=== PATIENT | male | born 1985 | race Hispanic/Latino ===

== ENCOUNTER 2023-01-18 21:33 | Emergency (ER) | payer SELFPAY ==
[2023-01-18 22:42] LABS: Absolute Lymphocytes (CBC) 2.6 K/uL (0.7-4.9); Hematocrit 18.3 % (39.6-49.0); Lymphocytes % 27.7 % (15.3-44.8); MCV 101.7 fL (80-100); MPV 7.8 fL (7.6-11.3)
[2023-01-18] MEDS ORDERED: CEFTRIAXONE 1000 MG/VIAL ONE (22:49)
[2023-01-18] MEDS ORDERED: ONDANSETRON 4 MG/2 ML VIAL ONE (22:49)
[2023-01-18] MEDS ORDERED: OCTREOTIDE ACETATE 100 MCG/ML ONE (22:49)
[2023-01-18] MEDS ORDERED: PANTOPRAZOLE 40 MG INJ ONE (22:49)
[2023-01-18] MEDS ORDERED: NA CHLORIDE 0.9% 500 ML ONE (22:50)
[2023-01-18] MEDS ORDERED: OCTREOTIDE ACETATE 500 MCG/ML ONE (22:50)
[2023-01-18] MEDS ORDERED: NA CHLORIDE 0.9% 250 ML ONE (22:50)
[2023-01-18] MEDS ORDERED: NA CHLORIDE 0.9% 50 ML ONE (22:51)
[2023-01-18 23:05] LABS: Albumin 2.7 g/dL (3.4-5.0); Bilirubin Total 0.5 mg/dL (0.2-1.0); Potassium 3.9 mEq/L (3.5-5.1); Protein, Total 6.6 g/dL (6.4-8.2)
[2023-01-18 23:19] LABS: Protime INR 1.35
--- NOTE | 2023-01-19 00:07 | EDPHYS ---
Physician Documentation [facility] Name: Virginie Cervantes Age: 37 yrs Sex: Male : 1985 Arrival Date: 01/18/2023 Time: 21:33 Bed 6 Private MD: ED Physician Dragan Santana HPI: 01/18 22:08 This 37 yrs old Male presents to ER via Wheelchair with complaints of rn Black/Tarry Stools, VOMITTING BLOOD, Weakness, Dizziness. 22:08 The patient presents to the emergency department vomiting blood. Onset: The rn symptoms/episode began/occurred 5 day(s) ago. Abdominal pain: none is appreciated. Modifying factors: The symptoms are alleviated by nothing, the symptoms are aggravated by nothing. Associated signs and symptoms: Pertinent positives: dizziness when standing, shortness of breath, Pertinent negatives: chest pain. Severity of symptoms: At their worst the symptoms were moderate in the emergency department the symptoms are unchanged. The patient has not experienced similar symptoms in the past. The patient has not recently seen a physician. Pt reports dark black stools for 5 days, started vomiting blood today, 2 episodes. No fever. + daily drinker for atleast 14 years. Last drink 1 week ago when started feeling bad. No abd pain. Does report abd swelling and leg swelling. No other medical problems per patient. . Historical: - Allergies: 21:57 No Known Allergies; ha1 - PMHx: 21:57 Hypertensive disorder; ha1 - PSHx: 21:57 None; ha1 - Immunization history:: Adult Immunizations not up to date. - Social history:: Smoking status: Patient reports the use of cigarette tobacco products, smokes one pack cigarettes per day. - Family history:: not pertinent. - Hospitalizations: : No recent hospitalization is reported. ROS: 22:08 Constitutional: Negative for fever, chills, and weight loss, Cardiovascular: Negative rn for chest pain, palpitations, and edema, Respiratory: + mild sob Abdomen/GI: + abd distension, + dark stool, + hematemesis MS/Extremity: Negative for injury and deformity, Skin: Negative for injury, rash, and discoloration, Neuro: Negative for headache, numbness, tingling, and seizure. Exam: 22:06 ECG was reviewed by the Attending Physician. rn 22:08 Constitutional: This is a well developed male in no acute distress. Head/Face: rn Normocephalic, atraumatic. Cardiovascular: Tachycardic, regular Respiratory: Mild tachypnea, no retractions, speaking full sentences. Abdomen/GI: + distended abd with fluid wave, no focal tenderness, no peritoneal signs. Skin: Ashen skin tone MS/ Extremity: Pulses equal, no cyanosis. 2+ edema bilateral lower ext Neuro: Awake and alert, GCS 15 Vital Signs: 21:48 BP 143 / 86; Pulse 109; Resp 18; Temp 99.1(O); Pulse Ox 100% on R/A; kd3 21:50 BP 134 / 80; Pulse 107; Resp 20; Pulse Ox 100% on R/A; Weight 79.83 kg; Height 5 ft. 7 ha1 in. ; 22:45 BP 119 / 78; Pulse 97; Resp 18; Pulse Ox 98% ; ha1 23:30 BP 118 / 73; Pulse 88; Resp 17 S; Pulse Ox 100% on R/A; ha1 05/ 00:18 BP 121 / 73; Pulse 89; Resp 20; Pulse Ox 100% on R/A; kd3 01:20 BP 127 / 72; Pulse 95; Resp 18 S; Temp 98.3(O); Pulse Ox 100% on R/A; ha1 01:25 BP 118 / 72; Pulse 91; Resp 18; Pulse Ox 100% on R/A; ha1 01:56 BP 118 / 69; Pulse 87; Resp 16; Pulse Ox 100% on R/A; kd3 02:20 BP 118 / 69; Pulse 83; Resp 19 S; Pulse Ox 100% on R/A; ha1 03:20 BP 108 / 72; Pulse 80; Resp 16 S; Temp 98.6(O); Pulse Ox 100% on R/A; ha1 04:05 BP 113 / 72; Pulse 80; Resp 16 S; Temp 98.1(O); Pulse Ox 100% on R/A; ha1 05:00 BP 117 / 68; Pulse 78; Resp 16 S; Pulse Ox 100% on R/A; ha1 06:00 BP 108 / 72; Pulse 77; Resp 18 S; Pulse Ox 100% on R/A; ha1 / 21:50 Body Mass Index 27.57 (79.83 kg, 170.18 cm) ha1 MDM: 01/18 21:38 Patient medically screened. rn 01/19 00:05 Differential diagnosis: gastritis, varices, UGIB, cirrhosis, ascites. Data reviewed: rn vital signs, nurses notes, lab test result(s), radiologic studies, CT scan, and as a result, I will admit patient. Consideration of Admission/Observation Patient was admitted/placed on observation. Escalation of care including admission/observation considered. Counseling: I had a detailed discussion with the patient and/or guardian regarding: the historical points, exam findings, and any diagnostic results supporting the discharge/admit diagnosis, lab results, radiology results, the need to transfer to another facility, for higher level of care, [facility] does not immediately have the required specialist. Response to treatment: the patient's symptoms have mildly improved after treatment, and as a result, I will admit patient. 00:59 ED course: Consulted with accepting physician at [facility], she would like the unit of rn blood given then repeat hemoglobin prior to transfer. Pt has remained hemodynamically stable. . 01/18 21:56 Order name: CBC with Diff; Complete Time: 22:48 01/18 21:56 Order name: CMP; Complete Time: 23:31 01/18 21:56 Order name: Lipase; Complete Time: 23:31 01/18 21:56 Order name: Protime (+inr); Complete Time: 23:31 01/18 21:56 Order name: Ptt, Activated; Complete Time: 23:31 01/18 21:56 Order name: Lactate w/ 2H reflex if indic.; Complete Time: 23:31 01/18 21:56 Order name: ETOH Level; Complete Time: 23:31 01/18 21:56 Order name: Type And Screen 01/18 21:56 Order name: BNP; Complete Time: 23:31 01/18 21:57 Order name: Blood Culture Adult (2) 01/18 23:39 Order name: Packed RBC Leukored [facility] 01/19 00:10 Order name: SARS RAPID ds4 01/19 00:13 Order name: ABO/RH no charge; Complete Time: 00:36 [facility] 01/19 04:18 Order name: Hematocrit 1 01/19 04:18 Order name: Hemoglobin [facility] 01/18 21:56 Order name: CT Abd/Pelvis - IV Contrast Only rn 01/18 21:56 Order name: EKG; Complete Time: 21:57 rn 01/18 21:56 Order name: IV Saline Lock; Complete Time: 22:28 rn 01/18 21:56 Order name: Labs collected and sent; Complete Time: 22:28 rn 01/18 21:56 Order name: EKG - Nurse/Tech; Complete Time: 22:01 rn 01/18 23:33 Order name: Transfuse; Complete Time: 02:22 rn EC/12 22:06 Rate is 101 beats/min. Rhythm is regular. QRS [place] is Normal. [place] interval is normal. rn QRS interval is normal. QT interval is normal. No Q waves. T waves are Normal. No ST changes noted. Clinical impression: Sinus tachycardia. Interpreted by me. Reviewed by me. Administered Medications: 22:54 Drug: Ondansetron IVP 4 mg Route: IVP; Site: right antecubital; ha1 23:30 Follow up: Response: No adverse reaction; Nausea is decreased ha1 22:57 Drug: Pantoprazole IVP 40 mg Route: IVP; Site: right antecubital; ha1 23:30 Follow up: Response: No adverse reaction ha1 23:00 Drug: Rocephin IV 1 grams Route: IV; Rate: calculated rate; Site: right antecubital; ha1 23:30 Follow up: Response: No adverse reaction ha1 23:05 Drug: Octreotide IV 50 mcg Route: IV; Rate: calculated rate; Site: right antecubital; ha1 23:30 Follow up: Response: No adverse reaction; IV Status: Completed infusion; IV Intake: [id number] 23:15 Drug: Octreotide Infusion (50 mcg/hr) - (Octreotide IV 500 mcg, NS 0.9% IV 500 ml) ha1 Route: IV; Rate: 50 ml/hr; Site: right antecubital; 01/19 06:39 Follow up: Response: No adverse reaction; IV Status: Infusion continued; IV Intake: ha1 250ml 01/18 23:21 Drug: Pantoprazole IV 8 mg/hr Route: IV; Rate: 25 ml/hr; Site: left antecubital; ha1 23:30 Follow up: Response: No adverse reaction 01/19 06:39 Follow up: Response: No adverse reaction; IV Status: Infusion continued ha1 Disposition Summary: 01/19/23 00:06 Transfer Ordered Transfer Location: [facility] rn Reason: Higher level of care rn Condition: Stable rn Problem: new rn Symptoms: have improved rn Accepting Physician: (01/19/23 06:38) landy Diagnosis - GI Bleed/ Gastrointestinal hemorrhage, unspecified rn - Alcoholic cirrhosis of liver with ascites rn - Anemia, unspecified rn Forms: - Medication Reconciliation Form rn - SBAR form rn labor and delivery time excluding procedures: 00:05 Critical care time: Bedside Care: 35 minutes, Family Intervention: 5 minutes. Total rn time: 40 minutes Signatures: Dispatcher [employer] EDDragan Cotton MD MD rn Attema, Lee, BAG MAKING MACHINE TENDER-C BAG MAKING MACHINE TENDER-Cla1 Lorin Mena RN RN ha1 Corrections: (The following items were deleted from the chart) 06:38 00:06 rn ha1
--- NOTE | 2023-01-19 00:07 | ER ---
Nurse's Notes [facility] Name: Virginie Cervantes Age: 37 yrs Sex: Male : 1985 Arrival Date: 01/18/2023 Time: 21:33 Bed 6 Private MD: Diagnosis: GI Bleed/ Gastrointestinal hemorrhage, unspecified;Alcoholic cirrhosis of liver with ascites;Anemia, unspecified Presentation: 01/18 21:50 Chief complaint: Patient states: I have been having black stools for one weeks. This ha1 afternoon I vomited blood. Also, I am feeling very weak and I have palpitations on my chest. Coronavirus screen: Vaccine status: Patient reports receiving the 2nd dose of the covid vaccine. Ebola Screen: No symptoms or risks identified at this time. Initial Sepsis Screen: Does the patient meet any 2 criteria? No. Patient's initial sepsis screen is negative. Does the patient have a suspected source of infection? No. Patient's initial sepsis screen is negative. Risk Assessment: Do you want to hurt yourself or someone else? Patient reports no desire to harm self or others. Onset of symptoms was January 18, 2023. 21:50 Method Of Arrival: Wheelchair ha1 21:50 Acuity: JULIETA 3 ha1 Triage Assessment: 21:57 General: Appears comfortable, Behavior is calm, cooperative. Pain: Denies pain. EENT: ha1 No signs and/or symptoms were reported regarding the EENT system. Neuro: Level of Consciousness is awake, alert, obeys commands, Oriented to person, place, time, situation. Neuro: Reports weakness in generalized. Cardiovascular: Capillary refill < 3 seconds. Respiratory: Airway is patent Respiratory effort is even, unlabored, Respiratory pattern is regular, symmetrical. GI: Abdomen is distended, Reports bloody stool, vomiting, vomiting blood. : No signs and/or symptoms were reported regarding the genitourinary system. Derm: Skin is pale. Musculoskeletal: Circulation, motion, and sensation intact. Range of motion: intact in all extremities. Historical: - Allergies: 21:57 No Known Allergies; ha1 - PMHx: 21:57 Hypertensive disorder; ha1 - PSHx: 21:57 None; ha1 - Immunization history:: Adult Immunizations not up to date. - Social history:: Smoking status: Patient reports the use of cigarette tobacco products, smokes one pack cigarettes per day. - Family history:: not pertinent. - Hospitalizations: : No recent hospitalization is reported. Screenin:45 [facility] ED Fall Risk Assessment (Adult) History of falling in the last 3 months, ha1 including since admission No falls in past 3 months (0 pts) Confusion or Disorientation No (0 pts) Intoxicated or Sedated No (0 pts) Impaired Gait No (0 pts) Mobility Assist Device Used No (0 pt) Altered Elimination No (0 pt) Score/Fall Risk Level 0 - 2 = Low Risk Oriented to surroundings, Maintained a safe environment, Educated pt \T\ family on fall prevention, incl call for assistance when getting out of bed, Hourly rounding (assess needs \T\ fall precautionary measures) done. 22:01 Abuse screen: Denies threats or abuse. Denies injuries from another. Nutritional ha1 screening: No deficits noted. Tuberculosis screening: No symptoms or risk factors identified. Assessment: 22:00 Reassessment: see triage assessment. ha1 23:00 Reassessment: Patient and/or family updated on plan of care and expected duration. Pain ha1 level reassessed. Patient is alert, oriented x 3, equal unlabored respirations, skin warm/dry/pink. Patient denies pain at this time. 01/19 00:00 Reassessment: Patient and/or family updated on plan of care and expected duration. Pain ha1 level reassessed. Patient is alert, oriented x 3, equal unlabored respirations, skin warm/dry/pink. 01:25 Reassessment: notified Dr. Santana about elevated temperature. ha1 01:25 Reassessment: Patient and/or family updated on plan of care and expected duration. Pain ha1 level reassessed. Patient is alert, oriented x 3, equal unlabored respirations, skin warm/dry/pink. 02:20 Reassessment: Patient and/or family updated on plan of care and expected duration. Pain ha1 level reassessed. Patient is alert, oriented x 3, equal unlabored respirations, skin warm/dry/pink. 03:20 Reassessment: Patient and/or family updated on plan of care and expected duration. Pain ha1 level reassessed. Patient is alert, oriented x 3, equal unlabored respirations, skin warm/dry/pink. 04:05 Reassessment: completed first unit of blood. No adverse reaction. ha1 04:20 Reassessment: Patient and/or family updated on plan of care and expected duration. Pain ha1 level reassessed. Patient is alert, oriented x 3, equal unlabored respirations, skin warm/dry/pink. Patient denies pain at this time. 05:00 Reassessment: Patient and/or family updated on plan of care and expected duration. Pain ha1 level reassessed. Patient is alert, oriented x 3, equal unlabored respirations, skin warm/dry/pink. Patient denies pain at this time. 05:45 Reassessment: report was given to receiving nurse MERRICK Sampson. ha1 06:00 Reassessment: Patient and/or family updated on plan of care and expected duration. Pain ha1 level reassessed. Patient is alert, oriented x 3, equal unlabored respirations, skin warm/dry/pink. 06:39 Reassessment: Patient and/or family updated on plan of care and expected duration. Pain ha1 level reassessed. Patient is alert, oriented x 3, equal unlabored respirations, skin warm/dry/pink. pt. leaving with [facility]. Vital Signs: 01/18 21:48 BP 143 / 86; Pulse 109; Resp 18; Temp 99.1(O); Pulse Ox 100% on R/A; kd3 21:50 BP 134 / 80; Pulse 107; Resp 20; Pulse Ox 100% on R/A; Weight 79.83 kg; Height 5 ft. 7 ha1 in. ; 22:45 BP 119 / 78; Pulse 97; Resp 18; Pulse Ox 98% ; ha1 23:30 BP 118 / 73; Pulse 88; Resp 17 S; Pulse Ox 100% on R/A; ha1 01/19 00:18 BP 121 / 73; Pulse 89; Resp 20; Pulse Ox 100% on R/A; kd3 01:20 BP 127 / 72; Pulse 95; Resp 18 S; Temp 98.3(O); Pulse Ox 100% on R/A; ha1 01:25 BP 118 / 72; Pulse 91; Resp 18; Pulse Ox 100% on R/A; ha1 01:56 BP 118 / 69; Pulse 87; Resp 16; Pulse Ox 100% on R/A; kd3 02:20 BP 118 / 69; Pulse 83; Resp 19 S; Pulse Ox 100% on R/A; ha1 03:20 BP 108 / 72; Pulse 80; Resp 16 S; Temp 98.6(O); Pulse Ox 100% on R/A; ha1 04:05 BP 113 / 72; Pulse 80; Resp 16 S; Temp 98.1(O); Pulse Ox 100% on R/A; ha1 05:00 BP 117 / 68; Pulse 78; Resp 16 S; Pulse Ox 100% on R/A; ha1 06:00 BP 108 / 72; Pulse 77; Resp 18 S; Pulse Ox 100% on R/A; ha1 01/18 21:50 Body Mass Index 27.57 (79.83 kg, 170.18 cm) ha1 ED Course: 01/18 21:35 Patient arrived in ED. [id number] 21:38 Dragan Santana MD is Attending Physician. rn 21:45 Patient has correct armband on for positive identification. Placed in gown. Bed in low ha1 position. Call light in reach. Side rails up X 1. 21:45 Arm band placed on right wrist. ha1 21:57 Triage completed. ha1 22:16 Inserted saline lock: 20 gauge in right antecubital area, using aseptic technique. ha1 Blood collected. 22:27 Lorin Mena, MERRICK is Primary Nurse. ha1 22:28 ETOH Level Sent. ha1 22:28 Type And Screen Sent. ha1 22:28 BNP Sent. ha1 22:28 Lactate w/ 2H reflex if indic. Sent. ha1 22:28 Protime (+inr) Sent. ha1 22:28 Ptt, Activated Sent. ha1 22:29 Blood Culture Adult (2) Sent. ha1 23:00 Inserted saline lock: 20 gauge in left antecubital area, using aseptic technique. ha1 23:35 CT Abd/Pelvis - IV Contrast Only In Process Unspecified. EDMS 01/19 01:21 Inserted saline lock: 20 gauge in left forearm, using aseptic technique. aa9 06:39 No provider procedures requiring assistance completed. Patient transferred, IV remains ha1 in place. Administered Medications: 01/18 22:54 Drug: Ondansetron IVP 4 mg Route: IVP; Site: right antecubital; ha1 23:30 Follow up: Response: No adverse reaction; Nausea is decreased ha1 22:57 Drug: Pantoprazole IVP 40 mg Route: IVP; Site: right antecubital; ha1 23:30 Follow up: Response: No adverse reaction ha1 23:00 Drug: Rocephin IV 1 grams Route: IV; Rate: calculated rate; Site: right antecubital; ha1 23:30 Follow up: Response: No adverse reaction ha1 23:05 Drug: Octreotide IV 50 mcg Route: IV; Rate: calculated rate; Site: right antecubital; ha1 23:30 Follow up: Response: No adverse reaction; IV Status: Completed infusion; IV Intake: [id number] 23:15 Drug: Octreotide Infusion (50 mcg/hr) - (Octreotide IV 500 mcg, NS 0.9% IV 500 ml) ha1 Route: IV; Rate: 50 ml/hr; Site: right antecubital; 01/19 06:39 Follow up: Response: No adverse reaction; IV Status: Infusion continued; IV Intake: ha1 250ml 01/18 23:21 Drug: Pantoprazole IV 8 mg/hr Route: IV; Rate: 25 ml/hr; Site: left antecubital; ha1 23:30 Follow up: Response: No adverse reaction ha1 01/19 06:39 Follow up: Response: No adverse reaction; IV Status: Infusion continued ha1 Medication: 06:39 VIS not applicable for this client. ha1 Intake: 01/18 23:30 IV: 50ml; Total: 50ml. ha1 01/19 06:39 IV: 250ml; Total: 300ml. ha1 Outcome: 00:06 ER care complete, transfer ordered by . rn 06:38 Patient left the ED. ha1 06:39 Transferred to [facility]. ha1 06:39 Condition: stable 06:39 Discharge instructions given to patient, family, Instructed on the need for transfer, Demonstrated understanding of instructions. Signatures: Dispatcher [employer] EDMS Dragan Santana MD MD rn Jeffries, Jennifer [id number] Erendira Rosenbaum RN RN kd3 Liana Donovan RN RN aa9 Lorin Mena RN RN ha1 Corrections: (The following items were deleted from the chart) 01/18 23:22 20:00 Pantoprazole IVP 40 mg IVP in right antecubital ha1 ha1 01/19 05:28 05:20 Reassessment: Patient and/or family updated on plan of care and expected ha1 duration. Pain level reassessed. Patient is alert, oriented x 3, equal unlabored respirations, skin warm/dry/pink. Patient denies pain at this time. ha1
[2023-01-19] MEDS ORDERED: NA CHLORIDE 0.9% 250 ML ONE (00:17)
[2023-01-19 01:20] LABS: SARS-CoV-2 Antigen Rapid Res Negative (Negative)
[2023-01-19 04:32] LABS: Hematocrit 21.4 % (39.6-49.0)
[2023-01-19 07:16] VITALS: O2SAT 100
[2023-01-19 07:26] VITALS: TEMP 98.1
[2023-01-19 07:27] VITALS: BP 117/68
--- NOTE | 2023-01-21 11:46 | EKG ---
Test Date: 2023-01-18 Test Time: 21:58:06 Rn Review: DEMARCUS MEASUREMENT RESULTS: Intervals: Rate: 101 NE: 164 QRSD: 92 QT: 354 QTc: 459 [place]: P: 65 NE: 164 QRS: 61 T: 19 INTERPRETIVE STATEMENTS: Sinus tachycardia Otherwise normal ECG No previous ECG available for comparison Electronically Signed On 01-21-23 11:41:54 CDT by Gus Ferrer
--- NOTE | 2023-01-22 14:15 | RAD REPORT ---
EXAM DESCRIPTION: CT - Abdomen Pelvis W Contrast - 01/19/2023 12:05 am CLINICAL HISTORY: Male, 37 years old, hematemesis, dark stool COMPARISON: None. TECHNIQUE: CT acquisition of the abdomen and pelvis following the administration of IV contrast. Cor onal and sagittal reformatted images provided. This exam was performed according to departmental dose -optimization program which includes automated exposure control, adjustment of the mA and/or kV accor ding to patient size, and/or use of iterative reconstruction technique. FINDINGS: SUPPORTIVE DEVICES: None. LOWER CHEST: No significant abnormality within the lower chest. ABDOMEN AND PELVIS: Liver: Diffusely nodular morphology with caudate lobe hypertrophy. Upper normal size. No focal lesion identified. Gallbladder and bile ducts: Normal. Pancreas: Normal. Spleen: Upper normal size. Adrenal glands: Normal. Kidneys and ureters: Normal. Bladder: Normal. Reproductive organs: Unremarkable as visualized. GI tract: The distal esophagus, stomach, duodenum and small bowel are unremarkable. No evidence of ap pendicitis. Mild wall thickening of the cecum and ascending colon is suspected. The more distal large bowel appears normal. Lymph nodes: Prominent subcentimeter lymph nodes throughout the mesentery. Mildly enlarged jodie hepa tis and peripancreatic lymph nodes are present. Peritoneum: Small to moderate volume 4 quadrant ascites. Nonfocal mesenteric edema. No free air or fl uid collection. Abdominal wall: Small umbilical hernia containing peritoneal fat and the umbilical vein. Vessels: Splenic varices and recanalization of the umbilical vein. Atherosclerosis without evidence o f aneurysm. MUSCULOSKELETAL: No acute osseous abnormality. IMPRESSION: 1. Mild wall thickening of the proximal colon may represent colitis or be secondary to bowel decompression. 2. Cirrhotic hepatic morphology with sequela of portal hypertension. 3. Enlarged lymph nodes in the upper abdomen greater than mesenteric are likely reactive. Attention on any subsequently performed exam. Electronically signed by: Gaston Lee MD 01/18/2023 11:48 PM CDT Due to temporary technical issues with the PACS/Fluency reporting system, reports are being signed by the in house radiologist without review as a courtesy to ensure prompt reporting. The interpreting r adiologist is fully responsible for the content of the report.
== END 2023-01-19 06:38 | disposition short-term general hospital (02) ==
LOC: ER 21:33
DX: K70.31 Alcoholic cirrhosis of liver with ascites (principal); D64.9 Anemia, unspecified; Z20.822 Contact with and (suspected) exposure to COVID-19
CPT/HCPCS: 36415; 74177; 80053; 83605; 83690; 83880; 85014; 85018; 85025; 85610; 85730; 86850; 86900; 86901; 86920; 87040; 87811; 93005; 99285; C9113; G0480; J0696; J2354; J2405; J7040; J7050; P9016; Q9967